=== PATIENT | female | born 1975 | race Caucasian/White ===

== ENCOUNTER → 2019-11-10 13:18 | Outpatient (BNVA) | payer OTHER, SELFPAY | PROVIDERS: Visit Provider Nurse Practitioner Family | DX: E05.00 Thyrotoxicosis with diffuse goiter without thyrotoxic crisis or storm (principal); J04.0 Acute laryngitis; K02.9 Dental caries, unspecified; K04.7 Periapical abscess without sinus | CPT/HCPCS: 84439; 84443 ==

== ENCOUNTER → 2020-05-10 09:00 | Outpatient (BNVA) | payer OTHER, SELFPAY | PROVIDERS: PCP Nurse Practitioner Family; Visit Provider Nurse Practitioner Family | DX: E55.9 Vitamin D deficiency, unspecified (principal); Z68.39 Body mass index [BMI] 39.0-39.9, adult; E05.00 Thyrotoxicosis with diffuse goiter without thyrotoxic crisis or storm; R53.83 Other fatigue | CPT/HCPCS: 80053; 80061; 82306; 84439; 84443; 84481; 85025 ==

== ENCOUNTER → 2020-06-14 08:59 | Outpatient (BNVA) | payer OTHER, SELFPAY | PROVIDERS: PCP Nurse Practitioner Family; Visit Provider Internal Medicine | DX: E05.00 Thyrotoxicosis with diffuse goiter without thyrotoxic crisis or storm (principal); H53.2 Diplopia; R63.5 Abnormal weight gain; R53.83 Other fatigue; R94.6 Abnormal results of thyroid function studies; M81.0 Age-related osteoporosis without current pathological fracture; K75.81 Nonalcoholic steatohepatitis (NASH); Z86.39 Personal history of other endocrine, nutritional and metabolic disease; E55.9 Vitamin D deficiency, unspecified | CPT/HCPCS: 99205 ==

== ENCOUNTER → 2020-06-23 13:47 | Outpatient (BNVA) | payer OTHER, SELFPAY | PROVIDERS: PCP Nurse Practitioner Family; Visit Provider Nurse Practitioner Family | DX: R50.9 Fever, unspecified (principal); R05 Cough; J06.9 Acute upper respiratory infection, unspecified | CPT/HCPCS: 87071; 87400; 87635; 87880 ==

== ENCOUNTER → 2021-02-08 17:39 | Outpatient (BNVA) | payer OTHER, SELFPAY | PROVIDERS: PCP Nurse Practitioner Family; Visit Provider Nurse Practitioner Family | DX: N39.0 Urinary tract infection, site not specified (principal) | CPT/HCPCS: 81000 ==

== ENCOUNTER 2021-04-23 09:07 | Outpatient (CLI) | payer OTHER, SELFPAY ==
--- NOTE | 2021-04-23 09:55 | XRR_ITS ---
PROCEDURE INFORMATION: Exam: XR Thoracic Spine Exam date and time: 04/23/2021 9:55 AM Age: 45 years old Clinical indication: Injury or trauma; Fall; Blunt trauma (contusions or hematomas) TECHNIQUE: Imaging protocol: XR of the thoracic spine. Views: 3 views. COMPARISON: No relevant prior studies available. FINDINGS: Bones/joints: No fracture or other acute abnormalities are seen in the thoracic spine. There is no malalignment. Mild degenerative changes are present with scattered small osteophytes. Soft tissues: Unremarkable. XR/XR thoracic spine 3V* [id number] IMPRESSION: Mild degenerative changes. No acute abnormality.
== END 2021-04-23 09:08 | disposition home or self-care (01) ==
PROVIDERS: PCP Nurse Practitioner Family; Visit Provider Nurse Practitioner
DX: M54.6 Pain in thoracic spine (principal); W19.XXXA Unspecified fall, initial encounter
CPT/HCPCS: 72072

== ENCOUNTER → 2021-06-07 15:23 | Outpatient (BNVA) | payer OTHER, SELFPAY | PROVIDERS: PCP Nurse Practitioner Family; Referring Provider Family Medicine Adult Medicine; Visit Provider Podiatrist Foot & Ankle Surgery | DX: M21.371 Foot drop, right foot (principal); M21.611 Bunion of right foot | CPT/HCPCS: 73630 ==

== ENCOUNTER → 2021-10-17 17:46 | Outpatient (BNVA) | payer OTHER, SELFPAY | PROVIDERS: PCP Family Medicine Adult Medicine; Visit Provider Registered Nurse Neonatal Intensive Care | DX: N39.0 Urinary tract infection, site not specified (principal) | CPT/HCPCS: 81000 ==

== ENCOUNTER 2022-03-08 11:18 | Outpatient (CLI) | payer OTHER, SELFPAY ==
--- NOTE | 2022-03-08 11:30 | MM_ITS ---
WS: [id number] BILATERAL SCREENING DIGITAL BREAST TOMOSYNTHESIS MAMMOGRAM WITH CAD HISTORY: SCREENING COMPARISON: 10/16/2016 and 10/06/2014 Bilateral CC and MLO views with tomosynthesis and synthetic mammography submitted. Computer aided det ection analyzed. Breast composition: There are scattered areas of fibroglandular density. No suspicious masses, microc alcifications or architectural distortion. MM/[place] [id number] IMPRESSION: BI-RADS: 1-Negative FOLLOW UP: 1 Year Follow-up
== END 2022-03-08 11:19 | disposition home or self-care (01) ==
LOC: RADSHAW 11:22
PROVIDERS: PCP Family Medicine Adult Medicine; Visit Provider Family Medicine Adult Medicine
DX: Z12.31 Encounter for screening mammogram for malignant neoplasm of breast (principal)
CPT/HCPCS: 77063; 77067

== ENCOUNTER → 2022-03-15 07:31 | Outpatient (BNVA) | payer OTHER, SELFPAY | PROVIDERS: PCP Family Medicine Adult Medicine; Visit Provider Family Medicine Adult Medicine | DX: E05.00 Thyrotoxicosis with diffuse goiter without thyrotoxic crisis or storm (principal); F41.9 Anxiety disorder, unspecified; F32.9 Major depressive disorder, single episode, unspecified; E66.9 Obesity, unspecified; J45.909 Unspecified asthma, uncomplicated | CPT/HCPCS: 84443 ==

== ENCOUNTER 2022-05-04 13:57 | Outpatient (RCR) | payer OTHER, SELFPAY | END 2022-05-21 23:59 | disposition home or self-care (01) | LOC: SPT 13:57 | PROVIDERS: PCP Family Medicine Adult Medicine; Referring Provider Nurse Practitioner Adult Health; Visit Provider Nurse Practitioner Adult Health | DX: G89.29 Other chronic pain (principal); M54.41 Lumbago with sciatica, right side; M25.551 Pain in right hip | CPT/HCPCS: 97110; 97161 ==

== ENCOUNTER 2022-05-22 06:00 | Outpatient (RCR) | payer OTHER, SELFPAY | END 2022-06-21 23:59 | disposition home or self-care (01) | LOC: SPT 06:00 | PROVIDERS: PCP Family Medicine Adult Medicine; Referring Provider Nurse Practitioner Adult Health; Visit Provider Nurse Practitioner Adult Health | DX: C49.9 Malignant neoplasm of connective and soft tissue, unspecified (principal); M25.551 Pain in right hip; G89.29 Other chronic pain; M54.41 Lumbago with sciatica, right side; Z91.81 History of falling | CPT/HCPCS: 97110 ==

== ENCOUNTER 2022-06-22 06:00 | Outpatient (RCR) | payer OTHER, SELFPAY | END 2022-07-21 23:59 | disposition home or self-care (01) | LOC: SPT 06:00 | PROVIDERS: PCP Family Medicine Adult Medicine; Visit Provider Nurse Practitioner Adult Health | DX: C49.9 Malignant neoplasm of connective and soft tissue, unspecified (principal); G89.29 Other chronic pain; M25.551 Pain in right hip | CPT/HCPCS: 97110 ==

== ENCOUNTER 2022-07-22 06:00 | Outpatient (RCR) | payer OTHER, SELFPAY | END 2022-08-21 23:59 | disposition home or self-care (01) | LOC: SPT 06:00 | PROVIDERS: PCP Family Medicine Adult Medicine; Visit Provider Nurse Practitioner Adult Health | DX: C49.9 Malignant neoplasm of connective and soft tissue, unspecified (principal); M25.551 Pain in right hip; G89.29 Other chronic pain; Z91.81 History of falling; M54.41 Lumbago with sciatica, right side | CPT/HCPCS: 97110 ==

== ENCOUNTER 2022-08-22 06:00 | Outpatient (RCR) | payer OTHER, SELFPAY | END 2022-09-20 23:59 | disposition home or self-care (01) | LOC: SPT 06:00 | PROVIDERS: PCP Family Medicine Adult Medicine; Visit Provider Nurse Practitioner Adult Health | DX: C49.9 Malignant neoplasm of connective and soft tissue, unspecified (principal); M25.551 Pain in right hip; G89.29 Other chronic pain; M54.41 Lumbago with sciatica, right side | CPT/HCPCS: 97110 ==

== ENCOUNTER 2022-09-21 06:00 | Outpatient (RCR) | payer OTHER, SELFPAY | END 2022-10-21 23:59 | disposition home or self-care (01) | LOC: SPT 06:00 | PROVIDERS: PCP Family Medicine Adult Medicine; Visit Provider Nurse Practitioner Adult Health | DX: C49.9 Malignant neoplasm of connective and soft tissue, unspecified (principal); M25.551 Pain in right hip; G89.29 Other chronic pain; M54.41 Lumbago with sciatica, right side; Z91.81 History of falling | CPT/HCPCS: 97110 ==

== ENCOUNTER → 2023-06-19 13:32 | Outpatient (BNVA) | payer OTHER, SELFPAY | PROVIDERS: PCP Family Medicine Adult Medicine; Visit Provider Nurse Practitioner Family | DX: M54.9 Dorsalgia, unspecified (principal); N30.90 Cystitis, unspecified without hematuria | CPT/HCPCS: 81000; 87086 ==

== ENCOUNTER → 2023-10-08 18:45 | Outpatient (BNVA) | payer OTHER, SELFPAY | PROVIDERS: PCP Family Medicine Adult Medicine | DX: R05.9 Cough, unspecified (principal); U07.1 COVID-19 | CPT/HCPCS: 87400; 87426 ==

== ENCOUNTER 2023-12-14 14:39 | Outpatient (CLI) | payer OTHER, SELFPAY ==
--- NOTE | 2023-12-14 14:46 | MM_ITS ---
WS: [id number] BILATERAL 3D TOMOSYNTHESIS DIGITAL SCREENING MAMMOGRAPHY WITH CAD CLINICAL INFORMATION: SCREENING HISTORY: Screening mammogram. No current complaints. COMPARISON: 2021 TECHNIQUE: Bilateral CC and MLO views. FINDINGS: Scattered fibroglandular densities bilaterally. No suspicious focal mass, asymmetry, calcifications, or architectural distortion. No evidence of malignancy. IMPRESSION: MM/[place] [id number] BI-RADS: 1-Negative FOLLOW UP: 1 Year Follow-up Recommend return to annual screening mammography.
== END 2023-12-14 14:40 | disposition home or self-care (01) ==
LOC: RAD 14:39
PROVIDERS: PCP Family Medicine Adult Medicine; Visit Provider Family Medicine Adult Medicine
DX: Z12.31 Encounter for screening mammogram for malignant neoplasm of breast (principal); R92.323 Mammographic fibroglandular density, bilateral breasts
CPT/HCPCS: 77063; 77067

== ENCOUNTER → 2023-12-20 18:30 | Outpatient (BNVA) | payer OTHER, SELFPAY | PROVIDERS: PCP Family Medicine Adult Medicine; Visit Provider Registered Nurse Neonatal Intensive Care | DX: R30.0 Dysuria (principal) | CPT/HCPCS: 81000 ==

== ENCOUNTER 2024-02-20 08:46 | Emergency (ER) | payer OTHER, SELFPAY ==
[2024-02-20 08:57] VITALS: BP 162/98; PULSE 66; RESP 15; TEMP 37.1; O2SAT 99; BMI 38.2
--- NOTE | 2024-02-20 09:06 | PC.NURSE ---
pt states she works at [employer], states Probation Supervisor is aware of event, pt states Isadora with [employer]. Jessi Duncan, dry house worker, states she completed Employee Accident/Injury Report for patient.
--- NOTE | 2024-02-20 09:30 | XR_ITS ---
WS: [id number] XR hip BI 3-4V wo/[place] [id number] REASON FOR EXAM: fall pain, FINDINGS: No previous examination for comparison. There is a total right hip arthroplasty with the femoral component replacing the proximal right femur and a long intramedullary stem. The prosthetic components appear in proper position and alignment. There are bony fragments adjacent to the acetabular component of the prosthesis. It is uncertain whether this finding represents chronic change secondary to previous trauma and surge ry or an acute fracture fragment from the acetabulum. The remainder of the bony pelvis is intact. XR/XR hip BI 3-4V wo/w pel [id number] IMPRESSION: Bone fragments of unknown chronicity as above.
--- NOTE | 2024-02-20 09:32 | PC.PHAR ---
PT STATES SHE TAKES CARE OF HER OWN MEDICATIONS-PT STATES SHE TAKES XANAX 0.5MG TAKES 1/2 TABS (0.25MG) QAM AND CAN TAKE MORE IF NEEDED EXT SHOWS LAST FILLED 01/28/24 30D/S 0.25-0.5MG TID PRN AX-PT STATES SHE IS ONLY TAKING THE BUPROPION XL 300MG QAM FILLED ON 02/12/24 30D/S-EXT ALSO SHOWS XL 150MG QAM FILLED 01/28/24 30D/S PT STATES NOT TAKING 150MG-PT STATES SHE NO LONGER TAKES GABAPENTIN 300MG TID EXT SHOWS LAST FILLED 12/31/23 30D/S-PT STATES SHE TAKES ASPIRIN 81MG PRN FOR CHEST PAINS-PT STATES SHE HAS BEEN TAKING METOPROLOL SUCC ER 25MG TAKES 1/2 TAB (12.5MG) PO BID EXT SHOWS LAST FILLED 12/04/23 30D/S 25MG BID-PT STATES SHE IS STILL TAKING VIT D 02009 UNITS Q14D EXT SHOWS LAST FILLED 09/07/23 84D/S 67524 UNITS [id number] ARE MADE IN THE PHARMACY COMMENTS
--- NOTE | 2024-02-20 09:56 | W.ED.FALL ---
HPI - Fall General: Chief Complaint: Fall Stated Complaint: fall, left side neck pain Time Seen by Provider: 02/20/24 08:50 History of Present Illness: Patient was walking to the medical office building bathroom when she tripped and fell. She said she just tripped now she is having some tension in her neck and shoulders as well as pain in both hips. Patient is had a right hip replacement with a jayesh in her femur in the past. Patient denies any head pain loss of consciousness nausea vomiting dizziness. Patient has full range of motion in all her upper extremities and neck. Patient sitting in a wheelchair upon exam. Review of Systems General: Reports: 10 or more systems reviewed and unremarkable except in HPI and below PFSH ED PFSH: Medical History Painful and cold lower extremity Hypertension Osteoarthritis involving multiple joints on both sides of body Most severe in her right hip knee and ankle and foot. 09/11/2023 x-ray with osteoarthritis of knee ankle and foot COVID-19 07/11/20 Positive, Allergic rhinitis due to allergen Reactive airway disease with acute exacerbation Lesa-menopausal Anxiety and depression Obesity (BMI 30-39.9) Leiomyosarcoma Right gluteal sarcoma Diplopia Vitamin D deficiency Insomnia Chronic gluteal pain Chronic hip pain Past hip joint replacement. Graves disease Surgical History Hip joint replacement by other means RIGHT History of surgery on left wrist tendon transfer Status post surgery Right gluteal surgery due to cancer Family History Sister Cancer BRAIN Grandfather Colon cancer maternal Father Hypertension Family/Other Diabetes Paternal uncle Unknown Patient denies medical problems Denies family history of: breast/ovarian/uterine/prostate cancer Social History Smoking and tobacco/nicotine status: never used tobacco/nicotine Alcohol intake: never Substance/Drug Use: never Marital status: Number of children: 2 Number of grandchildren: 0 Current occupational status: employed Sexually active: Yes Do you think of yourself as: Straight/Heterosexual Current gender identity: Female Physical Exam Const: COMMON NORMALS: no acute distress, average body habitus, patient oriented x3, no limitations, healthy appearing, alert and well nourished HENMT: COMMON NORMALS: normocephalic, atraumatic, hearing grossly normal bilaterally, Normal external nose present, moist oral mucous membranes and oropharynx normal HEAD & SCALP: normocephalic and atraumatic NOSE: Normal external nose present Eye: COMMON NORMALS: Equal, round and reactive pupils present, EOMs intact bilaterally, conjunctivae normal and no scleral icterus CONJUNCTIVA: Yes conjunctivae normal PUPIL: Yes Equal, round and reactive pupils present Neck/C-Spine: COMMON NORMALS: full ROM, no lymphadenopathy, supple, no meningeal signs, no JVD and Thyroid normal THYROID: Thyroid normal OTHER: Mild tenderness to palpation bilateral paraspinal musculature and trapezius musculature Chest: COMMONS NORMALS: normal inspection of the chest and normal palpation of entire chest wall Resp: COMMON NORMALS: normal respiratory effort, No retractions, No use of accessory muscles and clear to auscultation bilaterally AUSCULTATION: clear to auscultation bilaterally Cardio: COMMON NORMALS: no JVD, regular rate, regular rhythm, S1 normal heart sound present, S2 normal heart sound present, No gallops present (Cardio), No clicks present (Cardio), No murmurs present (Cardio) and No rub (Cardio) RATE: regular rate RHYTHM: regular rhythm HEART SOUNDS: S1 normal heart sound present and S2 normal heart sound present GI: COMMON NORMALS: Normal to inspection, nondistended, normoactive bowel sounds present, Soft to palpation, non-tender, No hepatosplenomegaly present and no masses PALPATION: Yes Soft to palpation and Yes No hepatosplenomegaly present Neuro: COMMON NORMALS: patient oriented x3 SENSORIUM/ORIENTATION: Yes alert MENINGEAL SIGNS: Yes no meningeal signs Course Vital Signs: Vital signs: Vital Signs Temperature 98.7 F 02/20/24 08:57 Pulse Rate 66 02/20/24 08:57 Respiratory Rate 15 02/20/24 08:57 Blood Pressure 162/98 02/20/24 08:57 Pulse Oximetry 99 02/20/24 08:57 Oxygen Delivery Me thod Room Air 02/20/24 08:57 MDM - Fall Medical Decision Making X-ray of the bilateral pelvis and hips were obtained. Showed bony fragments with the prosthesis in good position. These was described to the patient. Patient will be discharged. Differential Diagnosis Unlikely syncope, dislocation of shoulder region, fracture of wrist, compression fracture, concussion with loss of consciousness or concussion without loss of consciousness Medical Records I reviewed the patient's medical records. Lab Data I reviewed the patient's lab results. Radiology Impressions Hip/Pelvis X-Ray 02/20/24 09:30 IMPRESSION: Bone fragments of unknown chronicity as above. All radiology interpretation(s) finalized by discharge Discharge Plan Discharge Patient Disposition: Home Clinical Impression: Fall, Musculoskeletal pain Condition: Stable Prescriptions: No Action albuterol sulfate 90 mcg/actuation aerosol powdr breath activated 2 inh INHALATION Q4H PRN (Reason: shortness of breath or wheezing) Qty: 1 1RF Rx Instructions: 340 B medications hydroxyzine HCl 50 mg tablet 50 mg PO Q6H PRN (Reason: panic attack(s)) Qty: 30 0RF alprazolam 0.5 mg tablet 0.25 mg PO QAM MDD 1.5MG (DME) AFO [place] for the Right See Rx Instructions .Route .MEDSUPPLY Qty: 1 0RF Rx Instructions: As directed [facility] [place] venlafaxine 150 mg capsule,extended release 24hr 150 mg PO QAM Aspir-81 81 mg Tablet,Delayed Release (Dr/Ec) 81 mg PO DAILY PRN (Reason: Chest Pain) levothyroxine 25 mcg tablet 25 mcg PO QAM trazodone 100 mg tablet 100 - 200 mg PO BEDTIME Aleve 220 mg Tablet 440 mg PO Q12H PRN (Reason: Pain) Vitamin D2 1,250 mcg (50,000 unit) capsule 50,000 unit PO Q14D bupropion HCl 300 mg tablet extended release 24 hr 300 mg PO QAM oxycodone 20 mg tablet 10 - 20 mg PO Q4H MDD 3 TABS PRN (Reason: Pain) montelukast 10 mg tablet 10 mg PO BEDTIME metoprolol succinate 25 mg tablet extended release 24 hr 12.5 mg PO BID Flonase Allergy Relief 50 mcg/actuation spray,suspension 2 spray intranasal DAILY PRN (Reason: Allergy Symptoms) Rx Instructions: administer into each nostril Discharge Orders: Discharge ED (Routine); Ordered 02/20/24 Ordered By: Cuate Akbar Referrals: Imer Guardado MD [Primary Care Provider] - 1 week Patient Instructions: Musculoskeletal Pain (ED) Activity Restrictions/Additional Instructions: X-rays are was obtained of your hips and pelvis which showed no obvious acute deformity, please take your regular pain medicine as directed. Please follow-up with your family practice physician in the next 7 to 10 days for further evaluation and treatment as needed. Thank you for choosing [facility] for your healthcare needs today. Please realize that you were seen in the emergency department and that we are providing you with an emergency medical screening exam and this may not be a complete and all exclusive of all testing and/or medical workup we may need to determine your element or severity of your illness. It is very important that you follow-up as instructed with your primary care provider or specialist for the additional evaluation and to discuss your medical treatment plan. You may return to the emergency department should you have concerns or if your condition changes or worsens in any way. Coding Level of Care Code ED Mortgage Loan Closer for Myriam Crowell
[2024-02-20 11:05] VITALS: RESP 17
== END 2024-02-20 11:22 | disposition home or self-care (01) ==
PROVIDERS: Emergency Provider Emergency Medicine; PCP Family Medicine Adult Medicine
DX: M79.18 Myalgia, other site (principal); Z79.82 Long term (current) use of aspirin; I10 Essential (primary) hypertension; W01.0XXA Fall on same level from slipping, tripping and stumbling without subsequent striking against object, initial encounter; Y92.531 Health care provider office as the place of occurrence of the external cause
CPT/HCPCS: 73522; 99283

== ENCOUNTER → 2024-03-14 17:29 | Outpatient (BNVA) | payer SELFPAY | PROVIDERS: PCP Family Medicine Adult Medicine; Visit Provider Registered Nurse Neonatal Intensive Care | DX: R39.9 Unspecified symptoms and signs involving the genitourinary system (principal); R30.0 Dysuria | CPT/HCPCS: 81000; 87086 ==

== ENCOUNTER 2024-05-16 08:17 | Outpatient (CLI) | payer OTHER, SELFPAY ==
[2024-05-16 09:07] LABS: Basophils % 0.3 %; Eosinophils # 0.1 10^3/uL (0.0-0.8); Eosinophils % 1.1 %; Hematocrit 44.2 % (36-47); Lymphocytes # 2.4 10^3/uL (0.8-4.8); Lymphocytes % 38.1 %; Mean Corpuscular HGB Conc 33.7 g/dL (30-55); Mean Corpuscular Volume 97.8 fl (85-98); Mean Platelet Volume 9.5 fL (7.4-10.4); Monocytes # 0.4 10^3/uL (0.2-0.9); Monocytes % 6.2 %; Neutrophils # 3.39 10^3/uL (1.8-7.7); Neutrophils % 54.1 %; Nucleated Red Blood Cells % 0 %; Platelet Count 245 10^3/cmm (157-399); Red Blood Count 4.52 10^6/uL (3.85-5.65); Red Cell Distribution Width 13.7 % (12.1-15.1); White Blood Count 6.27 10^3/uL (3.29-11.43)
[2024-05-16 09:37] LABS: Estmated Average Glucose 94; Hemoglobin A1C 4.9 % (4.0-6.0)
[2024-05-16 09:59] LABS: Alanine Aminotransferase 55 U/L (0-33); Albumin Level 4.6 g/dL (3.5-5.2); Alkaline Phosphatase 84 U/L (35-105); Anion Gap 16.4 (5-19); Aspartate Amino Transferase 32 U/L (0-32); Blood Urea Nitrogen 13 mg/dL (6-20); Calcium 9.5 mg/dL (8.5-10.5); Carbon Dioxide 28 mmol/L (22-29); Chloride 103 mmol/L (98-107); Chol HDL Ratio 3.77 mg/dL (0.0-4.40); Cholesterol 196 mg/dL (0-200); Free T4 Free Thyroxine 1.15 ng/dL (0.82-1.77); Globulin 3.9 g/dL (1.3-4.6); Glomerular Filtration Rate 88.9 mL/min (90-130); Glucose 121 mg/dL (65-115); HDL Cholesterol 52 mg/dL (60-100); LDL Cholesterol Calculated 129 mg/dL (50-129); LDL HDL Ratio 2.48 RATIO (0.00-3.22); Osmolality Calculated 299 mOsm/kg (285-295); Potassium 3.4 mmol/L (3.5-5.1); Sodium 144 mmol/L (136-145); Thyroid Stimulating Hormone 2.64 uIU/mL (0.27-4.20); Total Bilirubin 0.9 mg/dL (0.15-1.2); Total Protein 8.5 g/dL (6.6-8.7); Triglycerides 75 mg/dL (0-150)
[2024-05-19 14:34] LABS: Thyroid Peroxidase Antobodies 59 IU/mL (<9)
== END 2024-05-16 08:18 | disposition home or self-care (01) ==
LOC: LAB 08:19
PROVIDERS: PCP Family Medicine; Visit Provider Family Medicine
DX: K76.0 Fatty (change of) liver, not elsewhere classified (principal); I10 Essential (primary) hypertension; Z86.39 Personal history of other endocrine, nutritional and metabolic disease
CPT/HCPCS: 36415; 80053; 80061; 83036; 84439; 84443; 85025; 86376

== ENCOUNTER → 2024-08-12 10:22 | Outpatient (BNVA) | payer OTHER, SELFPAY | PROVIDERS: PCP Family Medicine; Visit Provider Nurse Practitioner Women's Health | DX: Z01.419 Encounter for gynecological examination (general) (routine) without abnormal findings (principal) | CPT/HCPCS: 82306; 86592; 86705; 86706; 87340; 87624; 87806 ==

== ENCOUNTER 2024-08-21 14:30 | Outpatient (CLI) | payer OTHER, SELFPAY ==
--- NOTE | 2024-08-21 14:30 | XR_ITS ---
WS: [id number] DEXA (DUAL ENERGY X-RAY ABSORPTIOMETRY) Bone mineral density was performed using a [employer] machine. HISTORY: E28.319 - Asymptomatic premature menopause COMPARISON: None available. Lumbar spine BMD (L1-L4): 1.020 g/cm2 T score: -1.3 Z score: -2.1 Total hip BMD: Left: 0.918 (g/cm2). T score: -0.7 (no units) Z score: -1.1 (no units) Left forearm BMD: 0.668 g/cm2. T score: -2.4 Z score: -2.4 10 year probability of a major osteoporotic fracture is 10.5%. XR/XR DEXA axial skeleton* [id number] IMPRESSION: OSTEOPENIA Based upon the WHO classification for females.
== END 2024-08-21 14:33 | disposition home or self-care (01) ==
PROVIDERS: PCP Family Medicine; Visit Provider Nurse Practitioner Women's Health
DX: Z13.820 Encounter for screening for osteoporosis (principal); E28.319 Asymptomatic premature menopause; M85.80 Other specified disorders of bone density and structure, unspecified site
CPT/HCPCS: 77080

== ENCOUNTER → 2024-09-24 16:23 | Outpatient (BNVA) | payer OTHER, SELFPAY | PROVIDERS: PCP Family Medicine; Visit Provider Family Medicine | DX: I10 Essential (primary) hypertension (principal) | CPT/HCPCS: 80048 ==

== ENCOUNTER → 2025-01-08 10:45 | Outpatient (BNVA) | payer OTHER, SELFPAY | PROVIDERS: PCP Family Medicine; Visit Provider Family Medicine | DX: N39.0 Urinary tract infection, site not specified (principal) | CPT/HCPCS: 81000 ==

== ENCOUNTER 2025-02-20 07:50 | Outpatient (CLI) | payer OTHER, SELFPAY ==
--- NOTE | 2025-02-20 08:00 | MM_ITS ---
WS: [id number] BILATERAL 3D TOMOSYNTHESIS DIGITAL SCREENING MAMMOGRAPHY WITH CAD CLINICAL INFORMATION: screening HISTORY: Screening mammogram. No current complaints. COMPARISON: 2023 TECHNIQUE: Bilateral CC and MLO views. FINDINGS: Scattered fibroglandular densities bilaterally. No suspicious focal mass, asymmetry, calcifications, or architectural distortion. No evidence of malignancy. MM/MM scr BI tomosynthesis [id number] IMPRESSION: DENSITY: There are scattered areas of fibroglandular density. BI-RADS: 1 - Negative. FOLLOW UP: 1 Year Follow-up Recommend return to annual screening mammography.
== END 2025-02-20 07:51 | disposition home or self-care (01) ==
PROVIDERS: PCP Family Medicine; Visit Provider Family Medicine
DX: Z12.31 Encounter for screening mammogram for malignant neoplasm of breast (principal); R92.323 Mammographic fibroglandular density, bilateral breasts
CPT/HCPCS: 77063; 77067

== ENCOUNTER 2025-04-09 13:29 | Outpatient (CLI) | payer OTHER, SELFPAY ==
[2025-04-10 15:49] LABS: Lyme AB Screen <0.90 index
== END 2025-04-09 13:30 | disposition home or self-care (01) ==
PROVIDERS: PCP Family Medicine; Visit Provider Nurse Practitioner Family
DX: T14.8XXA Other injury of unspecified body region, initial encounter (principal); W57.XXXA Bitten or stung by nonvenomous insect and other nonvenomous arthropods, initial encounter
CPT/HCPCS: 36415; 86618; 86666; 86757

== ENCOUNTER 2025-05-22 07:40 | Outpatient (CLI) | payer OTHER, SELFPAY ==
--- NOTE | 2025-05-22 08:15 | US_ITS ---
WS: [id number] Complete ABDOMINAL ULTRASOUND HISTORY: upper/epigastric pain COMPARISON: None available. Liver: 15.1 cm in length. Normal size liver and echogenicity. No bile duct dilatation or mass. Portal Vein: Normal hepatopetal flow with monophasic waveform. Gallbladder: Normally distended gallbladder with no stones or wall thickening. CBD: 1.1 cm Pancreas: Poorly visualized. Right kidney: 11.2 cm x 4.6 x 4.9 cm. Cortex:1.0 cm. Normal size and echogenicity. No hydronephrosis or mass. Left kidney: 11.7 cm x 5.5 cm x 5.5 cm. Cortex: 1.1 cm. Normal size and echogenicity. No hydronephrosis or mass. Spleen: 11.9 cm. Normal size and echogenicity. Aorta and IVC: Unremarkable abdominal aorta and IVC. US/US abdomen complete* [id number] Impression: 1. Dilated common bile duct 1.1 cm. Additional evaluation recommended to deter mine the cause. Recommend MRCP and MRI abdomen with and without contrast to bet ter evaluate the pancreas. Pancreatic head and distal common bile duct need to be further evaluated. 2. Normal gallbladder. 3. No intrahepatic duct dilatation. 4. Poorly visualized pancreas.
== END 2025-05-22 07:41 | disposition home or self-care (01) ==
LOC: RAD 07:41
PROVIDERS: PCP Family Medicine; Visit Provider Nurse Practitioner
DX: R10.13 Epigastric pain (principal); K31.89 Other diseases of stomach and duodenum
CPT/HCPCS: 76700

== ENCOUNTER 2025-05-28 05:51 | Day surgery (SDC) | payer OTHER, SELFPAY ==
[2025-05-28 06:14] VITALS: BMI 39.2
[2025-05-28 06:19] VITALS: BP 114/77; PULSE 86; RESP 18; TEMP 36.5; O2SAT 94
[2025-05-28 06:22] LABS: OR HCG Qualitative Urine Negative (Negative)
--- NOTE | 2025-05-28 06:54 | W.PM.OPSFHP ---
Same Day Surgery H&P Indication for Procedure/HPI DATE OF PROCEDURE: May 28, 2025 CHIEF COMPLAINT/INDICATIONFOR SURGICAL PROCEDURE: need for screening colonoscopy PREOP DIAGNOSIS: need for screening colonoscopy PLANNED PROCEDURE: Operation Date: 05/28/25 07:00 Proposed Procedures p Colonoscopy 13123 G0105 Z12.11(Not Applicable) - Roberto Ferrari MD Medications/Allergies* Home Medications ?Medication ?Instructions ?Recorded ?Confirmed ?Type aspirin 81 mg tablet,delayed 81 mg PO DAILY PRN Chest Pain 02/20/24 05/28/25 History release bupropion HCl 300 mg 24 hr tablet, 300 mg PO QAM 02/20/24 05/28/25 History extended release naproxen sodium 220 mg tablet 440 mg PO Q12H PRN Pain 02/20/24 05/28/25 History (Aleve) oxycodone 20 mg tablet 10 - 20 mg PO DAILY Pain 02/20/24 05/28/25 History trazodone 100 mg tablet 100 - 200 mg PO BEDTIME 02/20/24 05/28/25 History venlafaxine 150 mg 150 mg PO QAM 02/20/24 05/28/25 History capsule,extended release 24 hr alprazolam 0.5 mg tablet 0.5 mg PO QAM 09/24/24 05/28/25 History Allergies/Adverse Reactions Allergy/AdvReac Type Severity Reaction Status Date / Time Penicillins Allergy Mild Itching Verified 05/28/25 06:10 and headache prochlorperazine (From Allergy Unknown UNKNOWN Verified 05/28/25 06:10 Compazine) latex Allergy ALGY-Rash Verified 05/28/25 06:10 Pertinent History/Comorbid Conditions* Medical History (Updated 03/02/25 @ 08:47 by Christopher Jones MD) Right hip pain LULU (acute kidney injury) Drop foot gait Hypertension Osteoarthritis involving multiple joints on both sides of body Most severe in her right hip knee and ankle and foot. 09/11/2023 x-ray with osteoarthritis of knee ankle and foot COVID-19 07/11/20 Positive, Allergic rhinitis due to allergen Reactive airway disease with acute exacerbation Lesa-menopausal Anxiety and depression Obesity (BMI 30-39.9) Leiomyosarcoma Right gluteal sarcoma Diplopia Vitamin D deficiency Insomnia Chronic gluteal pain Chronic hip pain Past hip joint replacement. Graves disease Surgical History (Updated 02/28/23 @ 18:37 by Imer Guardado MD) Hip joint replacement by other means RIGHT History of surgery on left wrist tendon transfer Status post surgery Right gluteal surgery due to cancer Family History (Updated 08/12/24 @ 09:45 by Oanh Pierce) Colon cancer Grandfather maternal Diabetes Family/Other Paternal uncle Patient denies medical problems Unknown Denies family history of: breast/ovarian/uterine/prostate cancer Cancer Sister BRAIN Hypertension Father Thyroid disease Father Social History Smoking and tobacco/nicotine status: never used tobacco/nicotine Alcohol intake: never Substance/Drug Use: never Marital status: Number of children: 2 Number of grandchildren: 0 Current occupational status: employed Sexually active: Yes Do you think of yourself as: Straight/Heterosexual Current gender identity: Female Pertinent Exam Findings alert, oriented x 3 and clear to auscultation bilaterally Recommendations Surgery/Procedure today Coding Level of Care Code Acute Code for Myriam Crowell
--- NOTE | 2025-05-28 07:06 | ANES.PREANE2 ---
Pre-Anesthetic Assessment Height/Weight: Height 1.65 m Weight 107.048 kg Temp Pulse Resp BP Pulse Ox O2 Del Method 97.7 F 86 18 114/77 94 Room Air 05/28/25 06:19 05/28/25 06:19 05/28/25 06:19 05/28/25 06:19 05/28/25 06:19 05/28/25 06:19 Preop Diagnosis: need for screening colonoscopy Operation Date: 05/28/25 07:00 Proposed Procedures p Colonoscopy 12014 G0105 Z12.11(Not Applicable) - Roberto Ferrari MD Familial anesthetic complications: none Last intake: Intake Last Liquid Date 05/27/25 Last Liquid Time 20:00 Last Solid Date 05/26/25 Last Solid Time 19:00 Social No alcohol and No tobacco Exam alert, oriented x 3, clear to auscultation bilaterally and regular rate & rhythm Airway Submandibular: Other (excess tissue) Cervical ROM: within normal limits Mallampati: Class III Comments: Comments: intact History/ROS No significant history except as noted Pulmonary None reported CV/HEM Hypertension (medically cntrld. bp meds for several years) None reported Hepatic fatty liver GI None reported Metabolic Morbid Obesity [facility] [place] Osteoarthritis/DJD (low bone density - takes vit D. 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 freq falls. ) Anesthetic Plan ASA status: 3 Anesthesia: Anesthesia Evaluation and MAC Risk of > 500 ml blood loss (7ml/kg in children): No Medications/Allergies Home Medications ?Medication ?Instructions ?Recorded ?Confirmed ?Last Taken ?Type AFO [place] for the Right #1 ea 07/01/21 05/28/25 Unknown Rx hydroxyzine HCl 50 mg tablet 50 mg PO Q6H PRN panic attack(s) 10/24/23 05/28/25 3 Weeks Ago Rx #30 tabs ~05/04/25 aspirin 81 mg tablet,delayed 81 mg PO DAILY PRN Chest Pain 02/20/24 05/28/25 05/27/25 History release bupropion HCl 300 mg 24 hr tablet, 300 mg PO QAM 02/20/24 05/28/25 05/27/25 History extended release naproxen sodium 220 mg tablet 440 mg PO Q12H PRN Pain 02/20/24 05/28/25 3 Months Ago History (Aleve) ~02/22/25 oxycodone 20 mg tablet 10 - 20 mg PO DAILY Pain 02/20/24 05/28/25 05/27/25 History trazodone 100 mg tablet 100 - 200 mg PO BEDTIME 02/20/24 05/28/25 05/27/25 History venlafaxine 150 mg 150 mg PO QAM 02/20/24 05/28/25 05/27/25 History capsule,extended release 24 hr fluticasone propionate 50 2 spray intranasal DAILY #16 grams 04/29/24 05/28/25 05/27/25 Rx mcg/actuation nasal spray,suspension (Flonase Allergy Relief) four point cane #1 ea 07/30/24 05/28/25 Unknown Rx albuterol sulfate 90 mcg/actuation 2 inh inhalation Q4H PRN shortness 09/24/24 05/28/25 2 Weeks Ago Rx breath activated powder inhaler of breath or wheezing #1 ea ~05/11/25 alprazolam 0.5 mg tablet 0.5 mg PO QAM 09/24/24 05/28/25 05/27/25 History metoprolol succinate 25 mg 25 mg PO BID high blood pressure 10/30/24 05/28/25 05/27/25 Rx tablet,extended release 24 hr #60 tabs hydrochlorothiazide 25 mg tablet 25 mg PO QAM #90 tabs 01/06/25 05/28/25 05/27/25 Rx cholecalciferol (vitamin D3) 1,250 50,000 unit PO .q weekly 12 weeks 02/04/25 05/28/25 2 Weeks Ago Rx mcg (50,000 unit) capsule #12 caps ~05/11/25 furosemide 40 mg tablet 40 mg PO QAM #20 tabs 02/04/25 05/28/25 05/27/25 Rx potassium chloride 10 mEq 10 meq PO DAILY #20 tabs 02/04/25 05/28/25 05/27/25 Rx tablet,extended release (Klor-Con) levothyroxine 25 mcg tablet 25 mcg PO QAM #90 tabs 02/09/25 05/28/25 04/24/25 Rx montelukast 10 mg tablet 10 mg PO BEDTIME #90 tabs 02/09/25 05/28/25 05/27/25 Rx ondansetron HCl 4 mg tablet 4 mg PO Q6H PRN nausea and 04/08/25 05/28/25 05/28/25 Rx vomiting #20 tabs mupirocin 2 % topical ointment 1 applic topical TID 5 days #22 05/06/25 05/28/25 05/27/25 Rx (Centany) grams ondansetron 4 mg disintegrating 4 mg PO Q6H PRN nausea and 05/06/25 05/28/25 1 Week Ago Rx tablet vomiting #10 tabs ~05/18/25 Allergies Allergy/AdvReac Type Severity Reaction Status Date / Time Penicillins Allergy Mild Itching Verified 05/28/25 06:10 and headache prochlorperazine (From Allergy Unknown UNKNOWN Verified 05/28/25 06:10 Compazine) latex Allergy ALGY-Rash Verified 05/28/25 06:10 [facility] Anesthesia Medical History Right hip pain LULU (acute kidney injury) Drop foot gait Hypertension Osteoarthritis involving multiple joints on both sides of body Most severe in her right hip knee and ankle and foot. 09/11/2023 x-ray with osteoarthritis of knee ankle and foot COVID-19 07/11/20 Positive, Allergic rhinitis due to allergen Reactive airway disease with acute exacerbation Lesa-menopausal Anxiety and depression Obesity (BMI 30-39.9) Leiomyosarcoma Right gluteal sarcoma Diplopia Vitamin D deficiency Insomnia Chronic gluteal pain Chronic hip pain Past hip joint replacement. Graves disease Surgical History Hip joint replacement by other means RIGHT History of surgery on left wrist tendon transfer Status post surgery Right gluteal surgery due to cancer Family History Sister Cancer BRAIN Grandfather Colon cancer maternal Father Hypertension Thyroid disease Family/Other Diabetes Paternal uncle Unknown Patient denies medical problems Denies family history of: breast/ovarian/uterine/prostate cancer Social History Smoking and tobacco/nicotine status: never used tobacco/nicotine Alcohol intake: never Substance/Drug Use: never Marital status: Number of children: 2 Number of grandchildren: 0 Current occupational status: employed Sexually active: Yes Do you think of yourself as: Straight/Heterosexual Current gender identity: Female Female Reproductive History Date of last menstrual period: 04/27/25
--- NOTE | 2025-05-28 07:13 | PC.NURSE ---
cecum 0712
[2025-05-28 07:30] VITALS: BP 107/66; PULSE 76; RESP 10; TEMP 36.1; O2SAT 93
[2025-05-28 07:46] VITALS: BP 111/73; PULSE 82; RESP 16; O2SAT 91
--- NOTE | 2025-05-28 07:48 | ANES.PREANE2 ---
Medications/Allergies Home Medications ?Medication ?Instructions ?Recorded ?Confirmed ?Last Taken ?Type JAMMIE Hoffman for the Right #1 ea 07/01/21 05/28/25 Unknown Rx hydroxyzine HCl 50 mg tablet 50 mg PO Q6H PRN panic attack(s) 10/24/23 05/28/25 3 Weeks Ago Rx #30 tabs ~05/04/25 aspirin 81 mg tablet,delayed 81 mg PO DAILY PRN Chest Pain 02/20/24 05/28/25 05/27/25 History release bupropion HCl 300 mg 24 hr tablet, 300 mg PO QAM 02/20/24 05/28/25 05/27/25 History extended release naproxen sodium 220 mg tablet 440 mg PO Q12H PRN Pain 02/20/24 05/28/25 3 Months Ago History ([place]) ~02/22/25 oxycodone 20 mg tablet 10 - 20 mg PO DAILY Pain 02/20/24 05/28/25 05/27/25 History trazodone 100 mg tablet 100 - 200 mg PO BEDTIME 02/20/24 05/28/25 05/27/25 History venlafaxine 150 mg 150 mg PO QAM 02/20/24 05/28/25 05/27/25 History capsule,extended release 24 hr fluticasone propionate 50 2 spray intranasal DAILY #16 grams 04/29/24 05/28/25 05/27/25 Rx mcg/actuation nasal spray,suspension (Flonase Allergy Relief) four point cane #1 ea 07/30/24 05/28/25 Unknown Rx albuterol sulfate 90 mcg/actuation 2 inh inhalation Q4H PRN shortness 09/24/24 05/28/25 2 Weeks Ago Rx breath activated powder inhaler of breath or wheezing #1 ea ~05/11/25 alprazolam 0.5 mg tablet 0.5 mg PO QAM 09/24/24 05/28/25 05/27/25 History metoprolol succinate 25 mg 25 mg PO BID high blood pressure 10/30/24 05/28/25 05/27/25 Rx tablet,extended release 24 hr #60 tabs hydrochlorothiazide 25 mg tablet 25 mg PO QAM #90 tabs 01/06/25 05/28/25 05/27/25 Rx cholecalciferol (vitamin D3) 1,250 50,000 unit PO .q weekly 12 weeks 02/04/25 05/28/25 2 Weeks Ago Rx mcg (50,000 unit) capsule #12 caps ~05/11/25 furosemide 40 mg tablet 40 mg PO QAM #20 tabs 02/04/25 05/28/25 05/27/25 Rx potassium chloride 10 mEq 10 meq PO DAILY #20 tabs 02/04/25 05/28/25 05/27/25 Rx tablet,extended release (Klor-Con) levothyroxine 25 mcg tablet 25 mcg PO QAM #90 tabs 02/09/25 05/28/25 04/24/25 Rx montelukast 10 mg tablet 10 mg PO BEDTIME #90 tabs 02/09/25 05/28/25 05/27/25 Rx ondansetron HCl 4 mg tablet 4 mg PO Q6H PRN nausea and 04/08/25 05/28/25 05/28/25 Rx vomiting #20 tabs mupirocin 2 % topical ointment 1 applic topical TID 5 days #22 05/06/25 05/28/25 05/27/25 Rx ([facility]) grams ondansetron 4 mg disintegrating 4 mg PO Q6H PRN nausea and 05/06/25 05/28/25 1 Week Ago Rx tablet vomiting #10 tabs ~05/18/25 Allergies Allergy/AdvReac Type Severity Reaction Status Date / Time Penicillins Allergy Mild Itching Verified 05/28/25 06:10 and headache prochlorperazine (From Allergy Unknown UNKNOWN Verified 05/28/25 06:10 Compazine) latex Allergy ALGY-Rash Verified 05/28/25 06:10 Current Medications Generic Name Dose Route Start Last Admin Trade Name Freq PRN Reason Stop Dose Admin Sodium Chloride 1,000 mls @ 15 mls/hr 05/28/25 06:56 05/28/25 07:00 Sodium Chloride 0.9% IV 05/29/25 06:55 15 mls/hr .Q24H PRN Administration COLONOSCOPY FLUIDS PFSH Anesthesia Medical History Right hip pain LULU (acute kidney injury) Drop foot gait Hypertension Osteoarthritis involving multiple joints on both sides of body Most severe in her right hip knee and ankle and foot. 09/11/2023 x-ray with osteoarthritis of knee ankle and foot COVID-19 07/11/20 Positive, Allergic rhinitis due to allergen Reactive airway disease with acute exacerbation Lesa-menopausal Anxiety and depression Obesity (BMI 30-39.9) Leiomyosarcoma Right gluteal sarcoma Diplopia Vitamin D deficiency Insomnia Chronic gluteal pain Chronic hip pain Past hip joint replacement. Graves disease Surgical History Hip joint replacement by other means RIGHT History of surgery on left wrist tendon transfer Status post surgery Right gluteal surgery due to cancer Family History Sister Cancer BRAIN Grandfather Colon cancer maternal Father Hypertension Thyroid disease Family/Other Diabetes Paternal uncle Unknown Patient denies medical problems Denies family history of: breast/ovarian/uterine/prostate cancer Social History Smoking and tobacco/nicotine status: never used tobacco/nicotine Alcohol intake: never Substance/Drug Use: never Marital status: Number of children: 2 Number of grandchildren: 0 Current occupational status: employed Sexually active: Yes Do you think of yourself as: Straight/Heterosexual Current gender identity: Female Female Reproductive History Date of last menstrual period: 04/27/25
--- NOTE | 2025-05-28 08:15 | ANE.PACU2 ---
Inpatient post-anesthesia follow up: Airway intact: Yes Vital signs: Temperature 97.0 F Pulse Rate 82 Respiratory Rate 16 Blood Pressure 111/73 Pulse Oximetry 91 Oxygen Delivery Me thod Room Air Oxygen Flow Rate Fraction of Inspir ed Oxygen Hydration adequate: Yes Nausea and vomiting: No Pain level: 1 Mental status: Baseline
== END 2025-05-28 08:17 | disposition home or self-care (01) ==
PROVIDERS: Anesthesiology; PCP Family Medicine; Visit Provider Surgery
PROC: 0DJD8ZZ Inspection of Lower Intestinal Tract, Via Natural or Artificial Opening Endoscopic (ICD-10-PCS; CPT 45378; principal; 2025-05-28 07:00)
DX: Z12.11 Encounter for screening for malignant neoplasm of colon (principal); D12.8 Benign neoplasm of rectum; N17.9 Acute kidney failure, unspecified; I10 Essential (primary) hypertension; F41.8 Other specified anxiety disorders; E66.01 Morbid (severe) obesity due to excess calories; Z68.39 Body mass index [BMI] 39.0-39.9, adult; C49.9 Malignant neoplasm of connective and soft tissue, unspecified; H53.2 Diplopia; E05.00 Thyrotoxicosis with diffuse goiter without thyrotoxic crisis or storm; Z79.82 Long term (current) use of aspirin
CPT/HCPCS: 45380; 81025; 88305; J2704; J3490; J7030

== ENCOUNTER 2025-07-23 09:42 | Outpatient (CLI) | payer OTHER, SELFPAY ==
--- NOTE | 2025-07-23 10:00 | MR_ITS ---
WS: [id number] MRI/MRCP OF THE ABDOMEN WITHOUT GADOLINIUM ENHANCEMENT TECHNIQUE: Coronal T2 Fase BH, Axial T2 Fase BH, Axial T2 FS BH, Zxial 3D Bautista BH, Axial DWI BH, 2D MRCP Radial BH, 3D MRCP (Resp), and Axial 3D Dyn BH Post sequences. CLINICAL INFORMATION: dilation of common bile duct FINDINGS: Some image degraded by motion Gallbladder is normal in appearance. Common bile duct measures 10 mm at the pancreatic head and tapers distally. No filling defects to indicate choledocholithiasis. Pancreatic head appears normal. Some images degraded by motion. No pancreatic ductal dilatation. Fatty liver. Hepatomegaly. Normal portal vein and splenic vein. Tiny esophageal hiatal hernia. Adrenal glands are normal. No hydronephrosis in either kidney. Celiac and SMA are patent. Normal caliber upper abdominal aorta. MR/MR MRCP [id number] Impression: Some images degraded by motion 1. Common bile duct measures 10 mm at the pancreatic head. Normal tapering at the ampulla. No visualized choledocholithiasis. Recommend correlation with bili marion function studies. If abnormal recommend further evaluation with ERCP. Ampul madeline stenosis would be a consideration 2. Hepatomegaly with fatty infiltration 3. Visualized pancreas appears normal. No pancreatic ductal dilatation. 4. Normal gallbladder. 5. No other acute findings.
== END 2025-07-23 09:43 | disposition home or self-care (01) ==
LOC: RAD 09:42
PROVIDERS: PCP Family Medicine; Visit Provider Surgery
DX: K83.8 Other specified diseases of biliary tract (principal); R16.0 Hepatomegaly, not elsewhere classified
CPT/HCPCS: 74181